=== PATIENT | female | born 1935 | race Caucasian/White ===

== ENCOUNTER 2017-01-29 09:59 | Emergency (ER) | payer MEDICARE, BC ==
[2017-01-29 11:24] LABS: CHLORIDE,CL 104 mmol/L (98-107); SODIUM,NA 143 mmol/L (136-145)
[2017-01-29] MEDS ORDERED: Furosemide 40 MG Tab PO ONE (12:08)
[2017-01-29] MEDS ORDERED: Furosemide 40 MG/4 ML VIAL IVPUSH ONE (12:11)
[2017-01-29] MEDS ORDERED: Morphine 4 MG/ML Syringe IVPUSH ONE (12:13)
[2017-01-29 14:37] VITALS: BP 93/53
--- NOTE | 2017-01-30 07:48 | ER ---
Date of Service: 01/29/2017 SUBJECTIVE: Camille presents emergency room with her and daughter. states that the patient has been experiencing profound weakness for the past at least week and has gotten will worse over the past several days. The patient does not offer much in the way of complaints. She states that she is not experiencing any discomfort or chest pain. She does complain of some mild dyspnea. The patient does have a history of chronic kidney disease and is currently on Lasix and metolazone for this. She states that she has been experiencing increased edema to her lower extremities. However, she does have a longstanding history of severe peripheral edema. PAST MEDICAL HISTORY: 1. Chronic kidney disease. 2. Compression fracture of L5. 3. Type 2 diabetes mellitus. 4. Hypothyroidism. 5. Peripheral myopathy. 6. History of pulmonary embolism. 7. Hypertension. 8. Status post kyphoplasty. ALLERGIES: 1. Amitriptyline. 2. Codeine. 3. Zetia. 4. Fentanyl. 5. Propranolol. 6. Simvastatin. 7. Verapamil. MEDICATIONS: 1. Prolia. 2. Bumex. 3. Calcium plus D. 4. Tylenol. 5. Synthroid. 6. NovoLog. 7. Lantus. 8. Klor-Con. 9. Toprol-XL. 10.Zaroxolyn. 11.Prednisone. 12.Imitrex. 13.Jantoven. 14.Zoloft. 15.Azathioprine. 16.Lipitor. 17.Oxycodone. 18.Gabapentin. 19.Furosemide. 20.Senna plus. REVIEW OF SYSTEMS: General: Denies fever or chills. Does complain of global weakness. HEENT: No sore throat, rhinorrhea, or congestion. Respiratory: Complains of mild increase in dyspnea. Cardiac: Denies any substernal chest pain. No jaw, arm, neck, or back pain. GI: No nausea, vomiting, or diarrhea. No melena, hematochezia, or hematemesis. : Denies any dysuria. Musculoskeletal: No myalgias or arthralgias. She does have severe edema to both her lower extremities and this has been present for several years. Neurologic: Denies any numbness or tingling in her extremities. No difficulties with speech or ambulation. PHYSICAL EXAMINATION: General: This is an 82-year-old female patient, who is in no acute distress. Vital Signs: Blood pressure is 103/42, pulse rate is 93, temperature is 36.5, O2 saturations 94%. Skin: Warm, pink, and dry. HEENT. Head is normocephalic, atraumatic. Eyes, PERRLA. Extraocular movements are intact. Ears, TMs are clear. Mouth, oral mucosa is moist. No erythema or exudate noted in the hypopharynx. Neck: Supple. No masses. There is no lymphadenopathy. Lungs: Clear to auscultation. Heart: Regular rate and rhythm. Abdomen: Soft and nontender. There is no hepatosplenomegaly noted. There is no masses noted. Extremities: She does have home 4+ pitting edema to her lower extremities. EKG showed sinus rhythm without any acute ST or T-wave abnormalities. LABORATORY DATA: WBCs 10.1, hemoglobin is 9.4, platelets are 348. Coags; PT is 28.2, INR is 2.5. Chemistry; sodium is 143, potassium is 3.4, chloride is 104, bicarb is 28, BUN is 57, creatinine is 1.9. GFR is 25, glucose is 111. Lactic acid is 2.5, calcium is 10.5, corrected calcium is 11.78, phos is 36, magnesium is 1.7, total bilirubin is 0.6, AST is 34, ALT is 16, alkaline phosphatase is 187. CK was 16, CK-MB was 0.9. Troponin is 0.041, C-reactive protein was 14.7, proBNP was 2907, total protein is 6.4, albumin is 2.4. TSH was 1.526. Urinalysis was obtained. Specific gravity is 1.015, negative for protein, glucose, ketones, occult blood, nitrites, and leukocyte esterase. PA and lateral chest x-ray reveals what appears to be a right middle lobe infiltrate. ASSESSMENT: 1. Community-acquired pneumonia. 2. Acute on chronic renal failure. PLAN: The patient will be transferred to [facility]. I did speak with the hospitalist, who accepted the patient in transfer. She was given 40 mg of Lasix IV. All questions were answered. MWK: 01/29/2017 12:48:03 MODL: 01/29/2017 19:15:25 /[id number]
== END 2017-01-29 13:19 | disposition short-term general hospital (02) ==
LOC: VM.ED 09:59
DX: J18.9 Pneumonia, unspecified organism (principal); N18.9 Chronic kidney disease, unspecified; N17.9 Acute kidney failure, unspecified; E11.9 Type 2 diabetes mellitus without complications; E03.9 Hypothyroidism, unspecified; I12.9 Hypertensive chronic kidney disease with stage 1 through stage 4 chronic kidney disease, or unspecified chronic kidney disease; Z88.5 Allergy status to narcotic agent; Z88.1 Allergy status to other antibiotic agents; Z88.8 Allergy status to other drugs, medicaments and biological substances; Z79.4 Long term (current) use of insulin
CPT/HCPCS: 36415; 51702; 71010; 80053; 81001; 82550; 82553; 83605; 83735; 83880; 84100; 84443; 84484; 85025; 85610; 86140; 87040; 87804; 93005; 96374; 96375; 99285; J1940; J2270